=== PATIENT | female | born 1965 | race Caucasian/White ===

== ENCOUNTER → 2018-06-14 | Outpatient (CLI) | payer OTHER ==
[~2018-06-14] MED LIST: ALP25 PO; DAR100 PO; PREG25PO9 MC; RABE20TA33 PO; THY60 PO
--- NOTE | 2018-06-14 16:06 | RADIOLOGY IMAGING REPORT ---
FACILITY: [facility] PATIENT NAME: Siri Mendez : 1965 MR: [id number] V: [id number] EXAM DATE: ORDERING PHYSICIAN: GABRIELLE NAJERA TECHNOLOGIST: Location: [facility] [place] Patient: Siri Mendez : 1965 Visit/Account:[id number] Date of Sevice: 06/14/2018 PELVIC HISTORY: Post menopausal bleeding, right-sided pelvic pain TECHNIQUE: Transvaginal and transabdominal ultrasound pelvis. COMPARISON: July 17, 2014 FINDINGS: Uterus: ; 8.6 cm length x 7.7 cm AP x 8.9 cm transverse. Myometrium: There is a 5 x 8.1 x 6.8 cm isoechoic mass seen centrally within the uterus which may rep resent a large fibroid. Endometrium: Unremarkable; double thickness 9.5 mm. Cervix: Grossly negative. Ovaries: Right - 1.8 x 1.6 x 2.3 cm Left - 3 x 1.1 x 2.4 cm. There is a 1.5 cm cyst in the left ovary Blood flow is documented in each ovary by duplex Doppler ultrasound. Adnexa: Grossly unremarkable. Free pelvic fluid: None. IMPRESSION: There is a 5 x 8.1 x 6.8 cm isoechoic mass centrally within the uterus which may represent a large fi broid 1.5 cm simple cyst in the left ovary Report Dictated By: Marie Feldman MD at 06/14/2018 3:59 PM Report E-Signed By: aMrie Feldman MD at 06/14/2018 4:02 PM WSN:[email or web address]
== END ==
LOC: US 00:31
PROVIDERS: ATTEND Nurse Practitioner Family
DX: N83.202 Unspecified ovarian cyst, left side (principal)
CPT/HCPCS: 76856

== ENCOUNTER 2018-08-14 00:23 | Observation (INO) | payer OTHER ==
[~2018-08-14] VITALS: Ht 166.4 cm; Wt 73.0 kg
[2018-08-14] VITALS (15 sets, daily range): BP systolic 85–125; BP diastolic 49–74
[~2018-08-14 00:23] MED LIST changes: +BUPR-474 PO; +CITA-145 PO; +PROG100C PO; +THYR15TA6 PO; +THYR30TA21 PO; +[UNRECOGNIZED DRUG - OTHER]
[2018-08-14] MEDS ORDERED: PREGABALIN 150 MG CAPSULE PO ONE (09:05)
[2018-08-14] MEDS ORDERED: PHENAZOPYRIDINE 200 MG TAB PO ONE (09:10)
[2018-08-14] MEDS ORDERED: fentaNYL CITR 250 MCG/5 ML AMP ONE (09:19)
[2018-08-14] MEDS ORDERED: DEXAMETHASONE SOD PHOS 10MG/ML ONE (09:20)
[2018-08-14] MEDS ORDERED: LIDOCAINE MPF 1% 5 ML VIAL ONE (09:20)
[2018-08-14] MEDS ORDERED: ONDANSETRON 4 MG/2 ML VIAL ONE (09:20)
[2018-08-14] MEDS ORDERED: KETOROLAC 30 MG/ML VIAL ONE (09:20)
[2018-08-14] MEDS ORDERED: PROPOFOL EMUL(*) 10MG/ML 20 ML 20 ML ONE (09:20)
[2018-08-14 10:02] LABS: PLATELET COUNT, AUTOMATED 264 K/uL (150-450)
[2018-08-14] MEDS ORDERED: BUPIV/EPI 0.25% 1:200,000 50ML INFIL ONE (10:11)
[2018-08-14] MEDS ORDERED: FAMOTIDINE 20 MG TAB PO ONE (10:15)
[2018-08-14] MEDS ORDERED: NORMOSOL R SOLN(*) 1000 ML BAG 1,000 ML IV PRN (10:15)
[2018-08-14] MEDS ORDERED: MIDAZOLAM 2 MG/2 ML VIAL IVP PRN (10:15)
[2018-08-14] MEDS ORDERED: LIDOCAINE/SOD BICARB 8.4% SYR ID ONE (10:15)
[2018-08-14] MEDS ORDERED: ceFAZolin(*) 2GM/D5W 50ML 50 ML IVPB ONE (10:15)
[2018-08-14] MEDS ORDERED: KETAMINE HCL 200 MG/20 ML MDV ONE (10:31)
[2018-08-14] MEDS ORDERED: ePHEDrine 25 MG/5 ML DISP.SYR IVP ONE (10:33)
[2018-08-14] MEDS ORDERED: ACETAMINOPHEN(*)1000 MG/100 ML 100 ML IVPB ONE (10:43)
[2018-08-14] MEDS ORDERED: HALOPERIDOL LACT 5 MG/ML VIAL IM ONE (10:44)
[2018-08-14] MEDS ORDERED: SUGAMMADEX SOD 200 MG/2 ML SDV ONE (11:57)
--- NOTE | 2018-08-14 12:20 | Post Operative Note ---
Operative Note - MANAGER REVIEW Operative Day Date: Aug 14, 2018 Time: 12:19 Physicians Surgeon: Idalia Hot Frame Tender: Annika Anesthesia: Liam TRAORE Diagnosis Pre-Op Diagnosis: Symptomatic fibroid uterus, Persistent postmenopausal bleeding Post-Op Diagnosis: Same Procedure Findings: Uterus 361grams Procedure(s): BONIFACIO, BS, dx cysto Specimen Removed:(Maybe N/A): Uterus, bilateral fallopian tubes Fluids Fluids: UOP: 100cc IVF: 1600cc Estimated Blood Loss: Minimal ROSARIO SEQUEIRA MD Aug 14, 2018 12:20
[2018-08-14] MEDS ORDERED: DLR(*) 1000 ML BAG 1,000 ML IV PRN (12:47)
[2018-08-14] MEDS ORDERED: HYDROmorphone HCL 2 MG/ML SDV IVP PRN (12:50)
[2018-08-14] MEDS ORDERED: ONDANSETRON 4 MG/2 ML VIAL IV PRN (12:50)
[2018-08-14] MEDS ORDERED: INFLUENZA VIRUS VAC 0.5ML SYR IM ONE (12:50)
[2018-08-14] MEDS ORDERED: ACETAMINOPHEN 325 MG TAB PO PRN (12:50)
[2018-08-14] MEDS ORDERED: METOCLOPRAMIDE 10 MG/2 ML SDV IV PRN (12:50)
[2018-08-14] MEDS ORDERED: SIMETHICONE 80 MG CHEW CHEW PRN (12:50)
[2018-08-14] MEDS ORDERED: MAGNESIUM HYDROXIDE* 30ML UDCP PO PRN (12:50)
[2018-08-14] MEDS ORDERED: OXYC-865 PO (12:54)
[2018-08-14] MEDS ORDERED: IBUP800T37 PO (12:54)
[2018-08-14] MEDS ORDERED: fentaNYL CITR 100 MCG/2 ML AMP ONE (13:02)
--- NOTE | 2018-08-14 13:30 | OPERATIVE REPORT 1 ---
EVENT DATE: August 14, 2018 SURGEON: Kimberly Friedman MD ANESTHESIOLOGIST: Abel Wheeler MD ANESTHESIA: General endotracheal tube. FREIGHT REPRESENTATIVE: Capo Roblero DO PREOPERATIVE DIAGNOSES 1. Symptomatic uterine fibroid. 2. Persistent postmenopausal bleeding. POSTOPERATIVE DIAGNOSES 1. Symptomatic uterine fibroid. 2. Persistent postmenopausal bleeding. PROCEDURES PERFORMED 1. Robotic assisted total laparoscopic hysterectomy with bilateral salpingectomy. 2. Diagnostic cystoscopy. SPECIMENS REMOVED 1. Uterus,weighing 361 grams. 2. Bilateral fallopian tubes. URINE OUTPUT 100 cc. IV FLUIDS 1600 cc. ESTIMATED BLOOD LOSS Minimal. INDICATIONS FOR PROCEDURE This patient is a 52-year old 4, para 2 who presented with persistent postmenopausal bleeding and asymptomatic uterine fibroid. She was having pressure symptoms from the fibroid as well as postmenopausal bleeding. After discussing all of her management options, she elected to proceed with the above- said procedure. Please see the history and physical for full details. DESCRIPTION OF PROCEDURE The patient was properly identified and taken to the operating room. She was placed under general endotracheal tube anesthesia, placed in the dorsal lithotomy position and prepped and draped in the usual fashion for a laparoscopic-assisted vaginal procedure. The patient received Ancef preoperatively for prophylactic antibiotics. Her SCDs were on and functioning. A bimanual exam was performed, which revealed an enlarged anteverted uterus. A speculum was placed to visualize the cervix, which was multiparous and without lesion. The anterior lip was grasped with an Allis clamp. The cervix was serially dilated to 5 mg using Allen dilators. A medium VCare uterine manipulator was then requested and assembled. A suture was placed from the anterior lip of the cervix through the os and then from os to the posterior lip of the cervix. The sutures was then passed through the VCare. The VCare was then placed into the uterine fundus and the tip was insufflated. This remained in place and the colpotomy ring was advanced to be flushed against the cervix and vaginal mucosa. This was then tired down with an 0 Vicryl suture. The NuMo occluder was then advanced into the vagina and secured. A Leiva catheter was then placed to drain the bladder. The patient was placed in the supine position and attention was turned to the laparoscopic portion of this procedure. The supraumbilical region was infiltrated with 0.25% Marcaine with epinephrine. An 8 mm incision was made supraumbilically. The Iris laparoscope was assembled and introduced under direct visualization into the abdominal cavity. Pneumoperitoneum was then achieved. The remaining trocar locations were planned with two on the right and two on the left. The two incisions were made on the left with an 8 mm incision on the more medial and an 11 mm incision on the more lateral. This was after infiltration of 0.25% Marcaine with epinephrine. These two trocars were placed under direct visualization. In the same manner, two additional 8 mm ports were placed on the patient's right side. The patient was then placed into Trendelenburg position and the da Clay robotic system was prepped for docking. It was then brought in and aligned. The endoscope port was docked. The endoscope was then introduced and targeting was performed on the uterus. The remaining arms were then docked without difficulty. The fenestrated bipolar grasper with monopolar scissors was then advanced under direct visualization into the pelvis and energy was connected. At this time, I was able to break sterile attire and sit at the console to initiate the hysterectomy. Examination of the pelvis revealed no significant adhesions but a significantly enlarged uterus. In order to initiate the salpingectomy on the patient's left side, the left fallopian tube was elevated and placed on gentle traction. The mesosalpinx was cauterized and transected until the entire tube was able to be . The tube was then delivered through the 11 mm trocar. Following this, the same procedure was performed on the right side in order to completely remove the right fallopian tube. Once this was delivered through the 11 mm trocar, the right utero-ovarian ligament was cauterized and transected followed by cautery and transection of the round ligament. This allowed for the broad ligament to be opened. The anterior leaflet of the broad ligament was then opened and brought across the midline above the colpotomy ring in order to separate the vesicouterine peritoneum. The posterior peritoneum was then dissected further off the uterus on the right side down to the level of the cervix. The uterine vessels were then identified, cauterized and transected in order to allow the colpotomy to be performed. Attention was then turned to the patient's left side, where the left utero- ovarian ligament was cauterized and transected followed by the round ligament. The broad ligament on the left was unable to be open and the anterior leaflet was brought down to the midline, where the prior vesicouterine peritoneum have been dissected. The posterior leaflet was then also brought down to the level of the colpotomy ring. The uterine vessels were then visualized and cauterized. These were taken down with monopolar scissors to the level where the colpotomy would need to be performed. Please note bilateral ureters were noted to be far away from any of these incisions throughout the procedure. At this time, the bladder flap was further delineated and brought down without difficulty to a safe area in order to allow for closure of the vaginal cuff later. The colpotomy was then initiated anteriorly with identification of the colpotomy ring. The colpotomy was then continued in a circumferential fashion until the entire colpotomy was completed. The uterus was attempted to be delivered through the vagina but was noted to be quite large. Therefore, Dr. Roblero was able to bivalve the uterus enough to allow for delivery of the uterus. The uterus was then weighed and noted to be 361 grams. A glove was placed in the vagina to maintain pneumoperitoneum. The cuff was copiously irrigated and noted to be hemostatic. An 0 Vicryl suture was then utilized in a figure-of-8 manner to reapproximate the tissue on the left corner. A VLoc was then initiated on the right side to reapproximate the right corner following to the left with an unlocked suture. Once this was completely closed, the suture was followed backwards with two additional suture towards the right. Once this was completed, copious irrigation was again performed, revealing adequate hemostasis. Using the Edis-Bettencourt device, the fascia of the department assistant port was then closed using an 0 Vicryl with robotic assistance. All of the robotic arms were undocked and the instruments were removed. The pneumoperitoneum was released and the 11 mm fascia was tied down. All five skin incisions were reapproximated using a 4-0 Monocryl and closed with Dermabond. During this closure, the Leiva catheter was removed from the bladder. A cystoscope was assembled and introduced through the urethra and into the bladder under direct visualization. The entire bladder was evaluated and noted to be normal without any lesion or sutures. Bilateral ureteral jets were noted with Pyridium stained urine. The cystoscope was then removed and the Leiva catheter was replaced. At this time, the vaginal vault was evaluated and there was a very small vaginal laceration in the distal aspect of the vagina, which would be consistent with a first degree laceration. This was reapproximated using a 3-0 Vicryl on an SH needle in a [id number] manner in order to allow for hemostasis. The patient tolerated this procedure well and recovered in the Post-Anesthesia Care Unit. All sponge, needle and instrument counts were correct at the end of this procedure. PATRICIO
[2018-08-14] MEDS: oxyCODON/ACET (*)5/325MG (CII) 1 TAB TAB PO PRN ×2 (13:54→23:35)
--- NOTE | 2018-08-14 17:02 | OB/GYN Progress Note ---
OB Subjective Progress Notes Subjective Pt is doing well. She required one dose of Dilaudid IV but is improved since then. She is tolerating some po. Leiva still in and she has not yet ambulated. No nausea/vomiting. No chest pain/SOB/dizziness. OB Objective Physical Exam Vital Signs Date Time Temp Pulse Resp B/P (MAP) Pulse Ox O2 Delivery O2 Flow Rate FiO2 08/14/18 16:30 85 94/61 (72) 94 1.5 08/14/18 16:10 12 Nasal Cannula 08/14/18 16:00 98.6 General Appearance: Alert/Awake/No Acute Distress Neurological: No Gross deficits Eyes: Normal Extraocular Movement & Vison Cardiovascular: Normal Rhythm & Peripheral Pulses Respiratory: No Respiratory Distress, Clear to Auscultation Abdomen: Soft, Non-Tender, Non-Distended Incision: Clean, Dry, Intact Musculoskeletal: No Weakness/Pain Extremities: No Cyanosis,Clubbing or Edema Integumentary: Skin Intact without Lesions or Rash Psychological: Alert & Oriented X3, Appropriate Mood & Affect Result Diagram: 08/14/18 0952 Assessment and Plan Problems: (1) History of robot-assisted laparoscopic hysterectomy Assessment & Plan: POD#0 s/p RATLH/BS/dx cysto. She is doing well. Will continue routine postop cares. ROSARIO SEQUEIRA MD Aug 14, 2018 17:02
[2018-08-14] MEDS ORDERED: KETOROLAC 30 MG/ML VIAL IVP ONE (18:00)
[2018-08-14] MEDS ORDERED: oxyCODONE HCL 5 MG CAP PO ONE (18:30)
[2018-08-14] MEDS: DOCUSATE CALCIUM 240 MG CAP PO SCH (21:18)
[2018-08-14] MEDS: FAMOTIDINE 20 MG TAB PO SCH (21:19)
[2018-08-15] MEDS ORDERED: IBUPROFEN 800 MG TAB PO PRN
[2018-08-15 03:56] VITALS: BP 125/62
[2018-08-15] MEDS: oxyCODON/ACET (*)5/325MG (CII) 1 TAB TAB PO PRN ×2 (05:00→09:06)
[2018-08-15 06:00] LABS: PLATELET COUNT, AUTOMATED 252 K/uL (150-450)
[2018-08-15 07:30] VITALS: BP 103/64
[2018-08-15 07:32] VITALS: Ht 166.4 cm; Wt 73.0 kg
[2018-08-15] MEDS: DOCUSATE CALCIUM 240 MG CAP PO SCH (09:05)
[2018-08-15] MEDS: FAMOTIDINE 20 MG TAB PO SCH (09:05)
--- NOTE | 2018-08-15 11:49 | OB/GYN Progress Note ---
OB Subjective Progress Notes Subjective This is a late note from 0745am on 08/15/18 Doing well. Pain controlled with oral medications. Tolerating regular diet. Ambulating. Voiding. Minimal vaginal bleeding. No chest pain, shortness of breath or dizziness. She is having low oxygen at rest in a sitting position to as low as 84% and sleeping. She required 1L of oxygen by NC in the day and 2L by NC at night. OB Objective Physical Exam Vital Signs Date Time Temp Pulse Resp B/P (MAP) Pulse Ox O2 Delivery O2 Flow Rate FiO2 08/15/18 08:10 84 Room Air 08/15/18 07:30 98.3 78 18 103/64 (77) 08/15/18 03:56 2.0 Intake and Output 08/15/18 07:00 Intake Total 2200 ml Output Total 1550 ml Balance 650 ml Intake Oral 500 ml IV Total 1700 ml Output Urine Total 1550 ml General Appearance: Alert/Awake/No Acute Distress Neurological: No Gross deficits Eyes: Normal Extraocular Movement & Vison Cardiovascular: Normal Rhythm & Peripheral Pulses Respiratory: No Respiratory Distress, Clear to Auscultation Abdomen: Soft, Non-Tender, Non-Distended Incision: Clean, Dry, Intact Musculoskeletal: No Weakness/Pain Extremities: No Cyanosis,Clubbing or Edema Integumentary: Skin Intact without Lesions or Rash Psychological: Alert & Oriented X3, Appropriate Mood & Affect Result Diagram: 08/15/18 0553 Assessment and Plan Problems: (1) History of robot-assisted laparoscopic hysterectomy Assessment & Plan: POD#1 s/p RATLH/BS/dx cysto. Meeting milestones. Desires discharge to home today. Discussed routine postoperative expectations. Questions answered. Follow up in clinic in 1-2wks for postop check. (2) Low oxygen saturation Assessment & Plan: She is having low oxygen at rest in a sitting position to as low as 84% and sleeping. She required 1L of oxygen by NC in the day and 2L by NC at night. She is going to be discharged on the same amount of oxygen. She appears to have symptoms of sleep apnea, including snoring and waking up gasping. She has never been evaluated for this before. She will follow up with Veronica about this possibility and for her oxygen requirement within 1 week postoperative. ROSARIO SEQUEIRA MD Aug 15, 2018 11:49
--- NOTE | 2018-08-15 11:51 | OB/GYN Discharge Summary ---
Discharge Summary Reason for Hosp/Final Diag: (1) History of robot-assisted laparoscopic hysterectomy Hospital Course & Plan: POD#1 s/p RATLH/BS/dx cysto. Meeting milestones. Desires discharge to home today. Discussed routine postoperative expectations. Questions answered. Follow up in clinic in 1-2wks for postop check. (2) Low oxygen saturation Hospital Course & Plan: She is having low oxygen at rest in a sitting position to as low as 84% and sleeping. She required 1L of oxygen by NC in the day and 2L by NC at night. She is going to be discharged on the same amount of oxygen. She appears to have symptoms of sleep apnea, including snoring and waking up gasping. She has never been evaluated for this before. She will follow up with Gabrielle about this possibility and for her oxygen requirement within 1 week postoperative. Lates Vital Signs Vital Signs Date Time Temp Pulse Resp B/P (MAP) Pulse Ox O2 Delivery O2 Flow Rate FiO2 08/15/18 08:10 84 Room Air 08/15/18 07:30 98.3 78 18 103/64 (77) 08/15/18 03:56 2.0 Weight (Pounds): 161 Result Diagram: 08/15/18 0553 Condition: Improved Discharge: Home, Self Longterm Meds Active Scripts Oxycodone Hcl/Acetaminophen (PERCOCET 5-325 MG TABLET) 1 Each Tablet, 1 TAB PO Q4-6H PRN for pain, #30 TAB 0 Refills Prov:ROSARIO SEQUEIRA MD 08/14/18 Ibuprofen (IBUPROFEN) 800 Mg Tablet, 1 TAB PO Q8H PRN for pain, #30 TAB 0 Refills TAKE WITH FOOD EVERY 8 HOURS Prov:ROSARIO SEQUEIRA MD 08/14/18 Reported Medications [scottopelle] No Conflict Check 07/02/18 Bupropion Hcl (WELLBUTRIN XL) 300 Mg Tab.er.24h, 300 MG PO QDAY, TAB 07/02/18 Citalopram Hydrobromide (CITALOPRAM HBR) 20 Mg Tablet, 20 MG PO QDAY, #5 TAB 07/02/18 Thyroid,Pork (ARMOUR THYROID) 30 Mg Tablet, 30 MG PO QODAY 07/02/18 Thyroid,Pork (ARMOUR THYROID) 15 Mg Tablet, 15 MG PO QODAY 07/02/18 Discontinued Reported Medications Progesterone,Micronized (PROGESTERONE) 100 Mg Capsule, 100 MG PO QDAY, CAPSULE 07/30/18 Follow up Referrals: [facility] [facility] - [place] [facility] with ROSARIO SEQUEIRA MD Follow up in: 2 wks PO Discharge Diet: As Tolerates Discharge Activity: No Heavy Lifting > 10lb, Pelvic Rest Copies to: GABRIELLE NAJERA ; ROSARIO SEQUEIRA MD Aug 15, 2018 11:51
== END 2018-08-15 09:45 | disposition home or self-care (01) ==
LOC: OR 00:23 → PED 13:35
PROVIDERS: ADMIT Obstetrics & Gynecology; ATTEND Obstetrics & Gynecology
DX: D25.9 Leiomyoma of uterus, unspecified (principal); N95.0 Postmenopausal bleeding
CPT/HCPCS: 36415; 58573; 84703; 85025; 88307; G0378; J0131; J1100; J1170; J1630; J1885; J2001; J2250; J2405; J2704; J3010; J3490; S2900; 96372; J0690

== ENCOUNTER → 2018-10-24 | Outpatient (CLI) | payer OTHER ==
[2018-08-15 07:32] VITALS: BMI 26.4
[~2018-10-24] MED LIST changes: +IBUP800T37 PO; +OXYC-865 PO
== END ==
LOC: RESP 20:59
PROVIDERS: ATTEND Nurse Practitioner Family
DX: G47.33 Obstructive sleep apnea (adult) (pediatric) (principal); G47.37 Central sleep apnea in conditions classified elsewhere; G47.61 Periodic limb movement disorder